=== PATIENT | female | born 1950 | race Caucasian/White ===

== ENCOUNTER 2016-04-24 16:49 | Emergency (ER) | payer BC, OTHER ==
[2016-04-24] MEDS ORDERED: morphine CARPU-JECT 2 MG/1 ML DISP.SYRIN IM ONE (16:58)
[2016-04-24 16:59] VITALS: BP 122/69; PULSE 74; TEMP 97.9; BMI 23.8
--- NOTE | 2016-04-24 17:11 | PDOC ---
Rapid Medical Evaluation Time Seen by Provider: 04/24/16 16:56 Medical Evaluation: Allergies Allergy/AdvReac Type Severity Reaction Status Date / Time No Known Allergies Allergy Verified 04/24/16 16:56 04/24/16 16:56 I have performed a brief in-person evaluation of this patient. The patient presents with a chief complaint of right wrist pain Pt is a right hand dominant F who presents s/p stepping on a rolling pallet/ platform at work She tripped or lost balance and fell, landing on her right hand No head trauma, no LOC, no amnesia Pain is 5/10 Pertinent physical exam findings: Right hand swollen, wrist deformed Possible Colles fracture I have ordered the following: Xray The patient will proceed to Fast track for further evaluation. 04/24/16 17:00
[2016-04-24] MEDS ORDERED: morphine CARPU-JECT 4 MG/1 ML DISP.SYRIN ONE (17:12)
--- NOTE | 2016-04-24 17:16 | PDOC ---
History of Present Illness - General Chief Complaint: Injury Stated Complaint: INJURY Time Seen by Provider: 04/24/16 16:56 History Source: Patient Exam Limitations: No Limitations - History of Present Illness Initial Comments: 04/24/16 17:15 Patient brought in with son by ambulance for evaluation of right wrist injury. 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 Patient now has deformity and obvious fracture of distal right wrist 04/24/16 17:39 04/24/16 17:42 Occurred: reports: just prior to arrival, this afternoon Severity: reports: mild, moderate Method of Injury: Yes: fall Modifying Factors: improves with: cold therapy, immobilization Associated Symptoms (Fall): denies symptoms Past History - Travel Traveled outside of the country in the last 30 days: No Close contact w/someone who was outside of country & ill: No - Past Medical History Allergies/Adverse Reactions: Allergies Allergy/AdvReac Type Severity Reaction Status Date / Time No Known Allergies Allergy Verified 04/24/16 16:56 Home Medications: Ambulatory Orders Oxycodone HCl/Acetaminophen [Percocet 5-325 mg Tablet -] 1 - 2 tab PO Q4H PRN # 14 tablet MDD 4 04/24/16 Other medical history: PATIENT DENIES MEDICAL HX - Surgical History Abdominal Surgery: (TUBAL LIGATION) - Psycho/Social/Smoking Cessation Hx Suicidal Ideation: No Smoking History: Current every day smoker Number of Cigarettes Smoked Daily: 5 Information on smoking cessation initiated: No Hx Alcohol Use: No Drug/Substance Use Hx: No Trauma Specific PMHX - Complaint Specific PMHX Back Injury: No Neck Injury: No Review of Systems - Review of Systems Able to Perform ROS?: Yes Is the patient limited [place] proficient: Yes Constitutional: Yes: Symptoms Reported, See HPI, Malaise HEENTM: No: Symptoms Reported Respiratory: No: Symptoms reported Musculoskeletal: Yes: Symptoms Reported, Joint Pain, Joint Swelling (deformity) Integumentary: Yes: See HPI, Bruising Neurological: Yes: Symptoms reported, See HPI, Numbness All Other Systems: Reviewed and Negative *Physical Exam - Vital Signs Last Vital Signs Temp Pulse Resp BP Pulse Ox 97.9 F 74 16 122/69 100 04/24/16 16:53 04/24/16 16:53 04/24/16 16:53 04/24/16 16:53 04/24/16 16:53 - Physical Exam General Appearance: Yes: Nourished, Appropriately Dressed, Apparent Distress, Mild Distress HEENT: positive: REGINA, Normal ENT Inspection, TMs Normal, Pharynx Normal Neck: positive: Supple. negative: Tender Respiratory/Chest: positive: Lungs Clear Musculoskeletal: negative: Normal Inspection Extremity: positive: Normal Capillary Refill, Tender, Swelling. negative: Normal Inspection, Normal Range of Motion Integumentary: positive: Dry, Warm, Pale, Ecchymosis, Bruising Neurologic: positive: welder fitter arc II-XII NML intact, Fully Oriented, Alert, Normal Mood/ Affect, Normal Response, Motor Strength 06/14 Progress Note - Progress Note Progress Note: Discuss case with Dr. RIVERO, who will send physician's operations and intelligence assistant to emergency department for evaluation/treatment of displaced distal radius and ulnar fracture. Patient was medicated with morphine 4 mg IM, is immobilized with sling and boarding, resting waiting for further treatment and denying significant pain presently Medical Decision Making - Medical Decision Making 04/24/16 19:52 physician's operations and intelligence assistant arrived , hematoma block was placed and wrist fracture was reduced, casted and postreduction films wereobtained. Son understand follow- up planned at Dr. Giron office *DC/Admit/Observation/Transfer Diagnosis at time of Disposition: Closed fracture distal radius and ulna Qualifiers: Encounter type: initial encounter Laterality: right Qualified Code(s): S52.501A - Unspecified fracture of the lower end of right radius, initial encounter for closed fracture - Discharge Dispostion Disposition: HOME Condition at time of disposition: Stable Admit: No - Prescriptions Prescriptions: Oxycodone HCl/Acetaminophen [Percocet 5-325 mg Tablet -] 1 - 2 tab PO Q4H PRN # 14 tablet MDD 4 PRN Reason: Pain - Referrals Referrals: Dominic Gordon MD [Staff Physician] - - Patient Instructions Printed Discharge Instructions: DI for Wrist Fracture Additional Instructions: Rest, ice to area on and off for 15 minutes 4-6 times a day Avoid heavy lifting or exercise until pain and swelling is resolved or until further directed Keep area highly elevated to reduce swelling Use splints/Van wrap as directed Followup with orthopedist in one to 2 days if not improving, if significantly improved may wait one week for followup with orthopedist May use ibuprofen 2-200 mg tablets every 6 hours as needed for pain - Post Discharge Activity Work/School Note: Back to Work
--- NOTE | 2016-04-24 19:43 | CONSULT ---
Consult Consult Specialty:: orthopedics Reason for Consultation:: right wrist fracture - History of Present Illness History of Present Illness: 66y/o female presented to ER s/p fall onto outstretched right arm. C/o right wrist pain which is worse with motion and better with rest. She denies any numbness or tingling in the fingers. She had an x-ray and was found to have a fracture of the distal radius. There are no other associated, aggravating or relieving factors. - History Source History Provided By: Patient, Family Member, Medical Record Limitations to Obtaining History: No Limitations - Alcohol/Substance Use Hx Alcohol Use: No - Smoking History Smoking history: Current every day smoker Aproximately how many cigarettes per day: 5 Home Medications - Allergies Allergies/Adverse Reactions: Allergies Allergy/AdvReac Type Severity Reaction Status Date / Time No Known Allergies Allergy Verified 04/24/16 16:56 - Home Medications Home Medications: Ambulatory Orders Oxycodone HCl/Acetaminophen [Percocet 5-325 mg Tablet -] 1 - 2 tab PO Q4H PRN # 14 tablet MDD 4 04/24/16 Review of Systems - Review of Systems Constitutional: reports: No Symptoms Eyes: reports: No Symptoms HENT: reports: No Symptoms Neck: reports: No Symptoms Cardiovascular: reports: No Symptoms Respiratory: reports: No Symptoms Gastrointestinal: reports: No Symptoms Genitourinary: reports: No Symptoms Breasts: reports: No Symptoms Reported Musculoskeletal: reports: No Symptoms Integumentary: reports: No Symptoms Neurological: reports: No Symptoms Endocrine: reports: No Symptoms Hematology/Lymphatic: reports: No Symptoms Psychiatric: reports: No Symptoms Physical Exam Vital Signs: Vital Signs Temperature 97.9 F 04/24/16 16:53 Pulse Rate 74 04/24/16 16:53 Respiratory Rate 16 04/24/16 16:53 Blood Pressure 122/69 04/24/16 16:53 O2 Sat by Pulse Oximetry (%) 100 04/24/16 16:53 Constitutional: Yes: Well Nourished, No Distress, Calm HENT: Yes: Atraumatic, Normocephalic Musculoskeletal: Yes: Other (Right wrist: No open wounds. Dinner fork deformity of the wrist. Tenderness over the distal radius. No snuffbox tenderness. Full ROM of the fingers. Pain with motion of the wrist. NVID.) Imaging - Results X-ray: Report Reviewed, Image Reviewed (Right wrist Xray: Displaced colles fracture) Assessment/Plan #1 right distal radius fracture s/p WALLACE -Discussed today's findings and treatment options with the patient and son. I have recommended a closed reduction of the distal radius. Risks, benefits and alternatives were discussed. She would like to proceed. Written and verbal consent was obtained. Procedure, Closed reduction right distal radius fracture: Using sterile technique 10cc of 1% lidocaine was injected into the fracture site. The patient experienced complete relief of her pain after several minutes. The arm was then placed in traction with about 10lbs of force for approximately 10 minutes. A manipulation was then performed and improved alignment was obtained. A short arm cast was then placed and molded. The patient tolerated the procedure well. Post reduction instructions given. Post reduction x-ray's showed improved alignment. She was NVID after reduction. -Discussed the post reduction xrays with the patient and son. She is to follow up with Dr. Gordon within 1 week for surgical consultation. I explained in order to achieve the best possible outcome she will need surgery for the fracture. She does live in the [place] and may go to another doctor closer to home. I provided our office card and instructed the patient to make an appointment with Dr. Gordon. -Discussed cast care, elevation and finger ROM.
== END 2016-04-24 20:03 | disposition home or self-care (01) ==
LOC: JERFT 16:49
PROC: 3E023NZ Introduction of Analgesics, Hypnotics, Sedatives into Muscle, Percutaneous Approach (ICD-10-PCS; principal; 2016-04-24)
PROC: 0RSNXZZ Reposition Right Wrist Joint, External Approach (ICD-10-PCS; 2016-04-24)
DX: S52.501A Unspecified fracture of the lower end of right radius, initial encounter for closed fracture (principal); W18.39XA Other fall on same level, initial encounter; Y93.89 Activity, other specified; Y92.9 Unspecified place or not applicable; Y99.0 Civilian activity done for income or pay; F17.210 Nicotine dependence, cigarettes, uncomplicated
CPT/HCPCS: 73110-TC-RT; 73130-TC-RT; 99281-25

== ENCOUNTER 2016-05-08 12:05 | Day surgery (SDC) | payer OTHER, BC ==
[2016-05-07 12:47] VITALS: BMI 23.0
[2016-05-08] MEDS ORDERED: ROPIVACAINE HCL 0.5% 30ML VIAL ONE (13:07)
[2016-05-08] MEDS ORDERED: MIDAZOLAM HCL 2 MG/2 ML SINGLE DOSE VIAL ONE (13:07)
[2016-05-08] MEDS ORDERED: ONDANSETRON 4 MG/2 ML VIAL IVPUSH PRN (14:41)
[2016-05-08] MEDS ORDERED: PROMETHAZINE HCL 25 MG/1 ML VIAL IVPUSH PRN (14:41)
[2016-05-08] MEDS ORDERED: LACTATED RINGERS SOLUTION 1,000 ML IV SCH (14:45)
[2016-05-08] MEDS ORDERED: oxyCODONE HCL 5 MG TABLET PO PRN (15:01)
[2016-05-08 17:21] VITALS: BP 110/61; PULSE 65; TEMP 98
--- NOTE | 2016-05-09 11:01 | OP ---
DATE OF OPERATION: 05/08/2016 PREOPERATIVE DIAGNOSIS: Right comminuted displaced intraarticular distal radius fracture, unstable. POSTOPERATIVE DIAGNOSIS: Right comminuted displaced intraarticular distal radius fracture, unstable. OPERATIVE PROCEDURE: 1. Open reduction internal fixation of right comminuted intraarticular displaced distal radius fracture with internal fixation of 3 or more fragments. 2. Right brachioradialis tenotomy. SURGEON: Dominic Tello MD ANESTHESIA: Regional. COMPLICATIONS: None. ESTIMATED BLOOD LOSS: Minimal. INDICATIONS: The patient is a 66-year-old female with the above findings, indicated for operative treatment. The risks, benefits, and alternatives were discussed with the patient at length, and proper informed consent was obtained. DESCRIPTION OF PROCEDURE: After proper identification of the patient and the correct operative site, the patient was brought to the operating room and placed supine on the operating room table with prominences well padded. Sedation was given by the anesthesiologist along with regional anesthesia. Right upper extremity was prepped and draped in the usual sterile fashion. Well-padded tourniquet was placed with a sterile prep, Esmarch bandage to exsanguinate the right upper extremity. Tourniquet inflated to 250 mmHg. A longitudinal incision was made over the flexor carpi radialis tendon volarly over the wrist. Incision was taken sharply through the skin with blunt and sharp dissection through subcutaneous tissues. Flexor carpi radialis tendon was retracted along with the contents of the carpal canal bluntly and gently in an ulnarward direction for the remainder of the procedure. Pronator quadratus was divided longitudinally and elevated off the distal radius. Fracture was identified. Reduction was attempted, however, the pull of the brachioradialis made reduction of the radial styloid fragments not possible. Therefore, a subperiosteal brachioradialis tenotomy was performed. Fracture was then reduced into a satisfactory position and held with an Acumed Acu-Loc distal radius plate with distal locking screws and proximal nonlocking screws. This provided a stable fracture reduction with satisfactory position confirmed visually as well as radiographically in multiple planes. Distal radioulnar joint and scapholunate intervals were stressed and found to be stable. Wound was irrigated with saline and repaired in layers using 4-0 Vicryl and 4-0 Monocryl sutures. Steri-Strips and sterile dressings were applied. Splint was placed. The patient was reversed from anesthesia and brought to the recovery room in stable condition. She tolerated the procedure well. DOMINIC TELLO M.D. [id number]
--- NOTE | 2016-05-09 11:39 | OP ---
DATE OF OPERATION: 05/08/2016 ADDENDUM MEDICAL OFFICE SCHEDULER SURGEON: MARTIN De Jesus, the paperhanger assistant, was integral throughout this procedure. This procedure could not have been performed without a skilled operative paperhanger assistant. MARY ALICE TELLO M.D. [id number]
== END 2016-05-08 17:30 | disposition home or self-care (01) ==
LOC: FASU 12:05
PROVIDERS: ATTEND Orthopaedic Surgery Hand Surgery
PROC: 0LN50ZZ Release Right Lower Arm and Wrist Tendon, Open Approach (ICD-10-PCS; 2016-05-08)
PROC: 0PSH04Z Reposition Right Radius with Internal Fixation Device, Open Approach (ICD-10-PCS; principal; 2016-05-08 14:05)
DX: S52.531A Colles' fracture of right radius, initial encounter for closed fracture (principal); X58.XXXA Exposure to other specified factors, initial encounter; Y93.9 Activity, unspecified; Y92.9 Unspecified place or not applicable
CPT/HCPCS: 73110-TC-RT; 94760